=== PATIENT | male | born 1955 | race Caucasian/White ===

== ENCOUNTER 2016-03-08 06:14 | Day surgery (SDC) | payer OTHER, BC ==
[2016-03-01 13:40] VITALS: BMI 33.1
--- NOTE | 2016-03-07 10:28 | HP ---
[facility] - Chief Complaint Chief Complaint: right knee pain - Past Medical History Allergies/Adverse Reactions: Allergies Allergy/AdvReac Type Severity Reaction Status Date / Time No Known Drug Allergies Allergy Verified 03/01/16 13:30 - Current Medications Current Medications: Medication Instructions Recorded Lisinopril [Zestril] 40 mg PO DAILY 03/01/16 Verapamil HCl [Verapamil ER] 240 mg PO DAILY 03/01/16 Satellite Physical Exam - Physical Examination General Appearance: Well Nourished, Well Developed, Alert & Oriented x3 ENT: Clear Lung: Normal air movement Heart: Regular rate & rhythm Extremities: Other (right knee- + swelling, + ttp, decr rom, nvi xrays show severe medial djd) Neurological: Intact, Alert, Oriented Satellite Impression/Plan - Impression/Plan Impression: right knee medial djd Operative Procedure: right medial anotn ukr Date to be Performed: 03/08/16
[2016-03-08] MEDS ORDERED: CELECOXIB 200 MG CAPSULE PO ONE (06:21)
[2016-03-08] MEDS ORDERED: CEFAZOLIN 2 GM/D5W 50 ML IVPB ONE (06:21)
[2016-03-08] MEDS ORDERED: oxyCODONE HCL 10 MG SUSTAINED ACTING TABLET PO ONE (06:21)
[2016-03-08] MEDS ORDERED: TRANEXAMIC ACID 1000 MG/10 ML VIAL IVPUSH ONE (06:21)
[2016-03-08] MEDS ORDERED: ROPIVICAINE 0.2%/MORPH PF/KETOROLAC - 51ML DISP.SYRINGE IA ONE ×2 (06:21→09:30)
[2016-03-08] MEDS ORDERED: GABAPENTIN 300 MG CAPSULE (FP) PO ONE (06:21)
[2016-03-08] MEDS ORDERED: MIDAZOLAM HCL 2 MG/2 ML SINGLE DOSE VIAL ONE ×2 (06:27→08:15)
[2016-03-08] MEDS ORDERED: ROPIVACAINE HCL 0.5% 30ML VIAL ONE (06:27)
[2016-03-08] MEDS ORDERED: DEXAMETHASONE SOD PHOSPHATE/PF 10 MG/ML SDV ONE (06:27)
[2016-03-08] MEDS ORDERED: BUPIVACAINE HCL/PF 0.5% (5MG/ML) 10 ML VIAL ONE (07:03)
[2016-03-08] MEDS ORDERED: SUCCINYLCHOLINE CHLORIDE 200 MG/10 ML VIAL ONE (07:05)
[2016-03-08] MEDS ORDERED: PROPOFOL 20 ML ONE ×3 (07:05→09:02)
[2016-03-08] MEDS ORDERED: GELATIN, ABSORBABLE 100 EACH SPONGE TP ONE (07:12)
[2016-03-08] MEDS ORDERED: THROMBIN (BOVINE) 5,000 UNIT VIAL TP ONE ×2 (07:12→09:08)
[2016-03-08] MEDS ORDERED: ceFAZolin SODIUM 1 GM VIAL ONE ×2 (07:58→08:27)
[2016-03-08] MEDS ORDERED: ACETAMINOPHEN 1000 MG/100 ML VIAL (NON FORMULARY) IVPB ONE (08:05)
[2016-03-08] MEDS ORDERED: oxyCODONE HCL 5 MG TABLET PO PRN ×2 (08:05)
[2016-03-08] MEDS ORDERED: TRANEXAMIC ACID 1000 MG/10 ML VIAL ONE (08:27)
[2016-03-08] MEDS ORDERED: ONDANSETRON 4 MG/2 ML VIAL IVPB PRN (09:47)
[2016-03-08] MEDS ORDERED: MAG HYDROX/AL HYDROX/SIMETH 30 ML UNIT-DOSE CUP PO PRN (09:47)
--- NOTE | 2016-03-08 09:50 | OP ---
Operative Note - Note: Operative Date: 03/08/16 (francisca) Pre-Operative Diagnosis: right knee medial djd Operation: right medial anton ukr Post-Operative Diagnosis: Same as Pre-op Surgeon: Toy Painter [employer] Finishing Hand: Jameson Singh Anesthesiologist/FLIGHT LINE SERVICE ATTENDANT: Artie Corley Anesthesia: Spinal, Local Specimens Removed: bone fragments Estimated Blood Loss (mls): 100 Operative Report Dictated: Yes
[2016-03-08] MEDS ORDERED: LACTATED RINGERS SOLUTION 1,000 ML IV SCH (10:00)
[2016-03-08] MEDS ORDERED: oxyCODONE HCL 10 MG SUSTAINED ACTING TABLET PO SCH ×2 (10:00→22:00)
[2016-03-08] MEDS ORDERED: ACETAMINOPHEN INJECTION 100 ML IVPB ONE (10:09)
[2016-03-08] MEDS: SENNOSIDES/DOCUSATE COMBO (SENNA PLUS) TABLET (UD) PO SCH ×2 (13:19→22:21)
[2016-03-08] MEDS: PANTOPRAZOLE 40 MG TABLET (FP) PO SCH (13:21)
[2016-03-08] MEDS: MULTIVITAMINS (DAILY MVI) TABLET (FP) PO SCH (13:21)
[2016-03-08] MEDS: LISINOPRIL 20 MG TABLET (FP) PO SCH (15:04)
[2016-03-08] MEDS: VERAPAMIL HCL 240 MG E.R. TABLET (FP) PO SCH (15:04)
[2016-03-08] MEDS: ACETAMINOPHEN 325 MG TABLET (FP) PO SCH ×2 (15:14→22:20)
[2016-03-08] MEDS: CEFAZOLIN 2 GM/D5W 50 ML IVPB SCH ×2 (15:14→23:30)
[2016-03-08] MEDS ORDERED: traMADol HCL 50 MG TABLET PO PRN (16:21)
[2016-03-08] MEDS: GABAPENTIN 300 MG CAPSULE (FP) PO SCH (22:21)
[2016-03-09] MEDS: ACETAMINOPHEN 325 MG TABLET (FP) PO SCH ×3 (04:51→10:29)
[2016-03-09 06:26] VITALS: BP 119/74; PULSE 97; TEMP 97.3
[2016-03-09] MEDS ORDERED: ASPIRIN 325 MG TABLET PO SCH (08:00)
[2016-03-09] MEDS: VERAPAMIL HCL 240 MG E.R. TABLET (FP) PO SCH (10:26)
[2016-03-09] MEDS: LISINOPRIL 20 MG TABLET (FP) PO SCH (10:26)
[2016-03-09] MEDS: SENNOSIDES/DOCUSATE COMBO (SENNA PLUS) TABLET (UD) PO SCH (10:26)
[2016-03-09] MEDS: PANTOPRAZOLE 40 MG TABLET (FP) PO SCH (10:27)
[2016-03-09] MEDS: GABAPENTIN 300 MG CAPSULE (FP) PO SCH (10:27)
[2016-03-09] MEDS: MULTIVITAMINS (DAILY MVI) TABLET (FP) PO SCH (10:29)
--- NOTE | 2016-03-12 11:11 | OP ---
DATE OF OPERATION: 03/08/2016 OPERATION: Right medial unicompartmental knee replacement with robotic-assisted navigation (MAKOplasty) and patelloplasty. PREOPERATIVE DIAGNOSIS: Degenerative joint disease, right knee. POSTOPERATIVE DIAGNOSIS: Degenerative joint disease, right knee. SURGEON: Toy Paniter M.D. TECHNOLOGY SALES REPRESENTATIVE: UNRULY Carpenter. ANESTHESIA: Spinal and regional. CLOSURE: Medial SHWETA components with a No. 4 femur, No. 6 tibia, 8 mm polyethylene, No. 1 Vicryl to fascia, 2-0 subcutaneous and 3-0 Monocryl subcuticular to skin with skin glue, 4-0 undyed Vicryl for pin sites. ESTIMATED BLOOD LOSS: Negligible. TOURNIQUET TIME: Approximately 25 minutes. COMPLICATIONS: None. CONDITION: To recovery room in stable condition. PROCEDURE: Patient was taken to the operating room. Spinal and femoral block anesthesia was administered by the anesthesiologist. IV Kefzol and TXA were administered prophylactically prior to the case. A well-padded pneumatic tourniquet was placed on the right proximal thigh. The right lower extremity was prepped and draped in the usual sterile fashion. A 6 cm longitudinal incision was made along the medial retinaculum from mid patella toward the tibial tubercle. Hemostasis was achieved using Bovie cautery. Sharp dissection was carried down to the level of the capsule, which was opened the entire length of incision. Subperiosteal dissection in the anterior medial proximal tibia. Periosteal elevator was used to facilitate this dissection. Partial fat pad excision was performed to gain visualization. A femoral and tibial checkpoint were malleted into place. Two bicortical pins were drilled through small stab incisions into the femur, 1 handbreadth above the patella. Two bicortical pins were drilled into the tibia 1 handbreadth below the tibial tubercle through small stab incisions as well. To these, pins were attached to clamps and the navigation arrays. The knee was then registered with the navigation device by ascertaining the center of rotation of the hip, both the medial and lateral malleoli, at approximately 50 points on the tibia and femur. Registration was within SHWETA parameters, being less than half a millimeter. At this time, the medial osteophytes on both the femur and tibia were removed by use of rongeur. The knee was taken through a range of motion and with stressing the medial compartment open at 0, 30, 60, 90 and 120 degrees. Stress points were obtained in order to develop a flexion / extension and a tightness / looseness graph. The robotic navigation device obtained a virtual tracking of the knee and found that the traction was in excellent position. The components were manipulated virtually in order to obtain a flexion/extension; tightness/looseness graph was then +/- 1 mm. The robot was then brought into the field and registered with the navigation device. The robot was then used to kristin the bone on both the femur and the tibia to the specifications and direction of the navigation device. All excess bone, osteophytes, and cartilage were removed, including the medial meniscus. Care was taken to protect the MCL throughout the case. The trial components were then placed into the knee with the appropriate polyethylene plastic trial liner. The knee was taken through a range of motion and the graph on the navigation device was then used again to confirm ideal position of the components and ideal tightness/looseness of the components. The trial components were removed, along with the checkpoints and the array. The knee was exsanguinated with an Esmarch bandage and tourniquet inflated to 175 mmHg. The knee was post-antibiotic irrigated and then dried and then Avitene and Gelfoam were placed to aid in hemostasis. The real components were then cemented in using modern generation cement techniques with antibiotics, cement and pressurization. All excess cement was removed. The knee was thoroughly inspected to remove any excess cement and bone fragments. The real polyethylene component was then clipped into place. Range of motion revealed excellent range of motion and good tensioning throughout. The knee was post-antibiotic irrigated. The fascia was closed using 2-0 Vicryl interrupted suture. The tourniquet was deflated. Total tourniquet time was less than 30 minutes. Hemostasis was obtained. Another dose of TXA was administered. The subcutaneous layer was closed with 2-0 Vicryl, 3-0 Monocryl subcuticular for skin. A pain cocktail was infused throughout the soft tissue. The pin sites were irrigated and closed with 4-0 Vicryl and skin glue was used for all incisions. Sterile Aquacel dressing was placed on all incisions followed by a dressing from the toes to the thigh. Patient was transferred to the recovery room in stable condition. No complications. Tripp [id number]
== END 2016-03-09 11:15 | disposition home health service (06) ==
LOC: FASU 06:14 → FM/S 12:25 → FASU 03-09 11:15
PROVIDERS: ATTEND Orthopaedic Surgery
PROC: 8E0YXBZ Computer Assisted Procedure of Lower Extremity (ICD-10-PCS; 2016-03-08)
PROC: 8E0Y0CZ Robotic Assisted Procedure of Lower Extremity, Open Approach (ICD-10-PCS; 2016-03-08)
PROC: 0SRC0L9 Replacement of Right Knee Joint with Medial Unicondylar Synthetic Substitute, Cemented, Open Approach (ICD-10-PCS; principal; 2016-03-08 08:00)
DX: M17.11 Unilateral primary osteoarthritis, right knee (principal)
CPT/HCPCS: 20985; 27446; C1776; S2900; 73560-TC-RT; 94010; 94760; 97116-GP; 97162-PG